=== PATIENT | male | born 1940 | race Caucasian/White ===

== ENCOUNTER 2016-05-06 15:58 | Inpatient (IN) | payer MEDICARE, MEDICAID ==
[~2016-05-06] VITALS: Ht 167.6 cm; Wt 81.6 kg
[2016-05-06 16:45] VITALS: BP 129/62
[2016-05-06] MEDS ORDERED: TRAZ-144 PO (17:28)
[2016-05-06] MEDS ORDERED: RISP0.253 PO (17:28)
[2016-05-06] MEDS ORDERED: ESOM40CA PO (17:28)
[2016-05-06 18:45] VITALS: BP 129/62
[2016-05-06] MEDS ORDERED: MAG HYDROX/AL HYDROX/SIMETH 30 ML UDC PO PRN (19:00)
[2016-05-06] MEDS ORDERED: MAGNESIUM HYDROXIDE 30 ML UDC PO PRN (19:00)
[2016-05-06] MEDS ORDERED: LORAZEPAM 0.5 MG TABLET PO PRN (19:00)
[2016-05-06 20:00] VITALS: BP 129/62
[2016-05-07 02:04] VITALS: BP 129/62
[2016-05-07 07:19] LABS: ALBUMIN 3.4 g/dL (3.4-5.0); BILIRUBIN,TOTAL 0.6 mg/dL (0.2-1.0); CALCIUM, SERUM 8.4 mg/dL (8.5-10.1); CREATININE 0.9 mg/dL (0.6-1.3); TOTAL PROTEIN, SERUM 6.9 g/dL (6.4-8.2)
[2016-05-07 08:00] VITALS: BP 119/68
[2016-05-07] MEDS ORDERED: QUETIAPINE FUMARATE 25 MG TABLET PO PRN (14:30)
[2016-05-07 16:00] VITALS: BP_SYST 100; BP_SYST 138; BP_DIAS 62; BP_DIAS 73
[2016-05-07] MEDS: risperiDONE-M 0.5 MG TAB.RAPDIS PO SCH ×2 (16:08→21:41)
[2016-05-07 20:11] VITALS: BP 114/57
[2016-05-07] MEDS: TEMAZEPAM 7.5 MG CAPSULE PO PRN (21:41)
[2016-05-07] MEDS ORDERED: MIRTAZAPINE 15 MG TABLET PO SCH (22:00)
[2016-05-08] MEDS: PANTOPRAZOLE 40 MG TABLET.DR PO SCH (07:58)
[2016-05-08 08:00] VITALS: BP 115/65
[2016-05-08] MEDS: risperiDONE-M 0.5 MG TAB.RAPDIS PO SCH ×2 (08:12→21:47)
[2016-05-08] MEDS ORDERED: PHENOL/SODIUM PHENOLATE 1 LOZ LOZENGE PO ONE (12:30)
[2016-05-08 16:00] VITALS: BP 131/64
[2016-05-08] MEDS ORDERED: MENTHOL/CETYLPYRD (CEPACOL) 1 LOZ LOZENGE PO ONE (17:00)
[2016-05-08 19:57] VITALS: BP 133/67
[2016-05-08] MEDS: TEMAZEPAM 7.5 MG CAPSULE PO PRN (21:47)
[2016-05-08] MEDS: DIVALPROEX SODIUM 250 MG TABLET.DR PO SCH (21:47)
[2016-05-09] MEDS: ACETAMINOPHEN 325 MG TABLET PO PRN (01:35)
[2016-05-09] MEDS: PANTOPRAZOLE 40 MG TABLET.DR PO SCH (07:30)
[2016-05-09 08:00] VITALS: BP 135/73
[2016-05-09] MEDS: DIVALPROEX SODIUM 250 MG TABLET.DR PO SCH ×2 (09:59→20:55)
[2016-05-09] MEDS: risperiDONE-M 0.5 MG TAB.RAPDIS PO SCH ×2 (09:59→18:26)
[2016-05-09 16:00] VITALS: BP 126/74
[2016-05-09 21:10] VITALS: BP 146/85
[2016-05-10] MEDS: ACETAMINOPHEN 325 MG TABLET PO PRN (04:11)
[2016-05-10 08:00] VITALS: BP 135/70
[2016-05-10] MEDS: risperiDONE-M 0.5 MG TAB.RAPDIS PO SCH ×3 (09:33→16:08)
[2016-05-10] MEDS: PANTOPRAZOLE 40 MG TABLET.DR PO SCH (09:33)
[2016-05-10] MEDS: DIVALPROEX SODIUM 250 MG TABLET.DR PO SCH ×2 (09:34→21:00)
[2016-05-10 16:00] VITALS: BP 106/63
[2016-05-10 19:56] VITALS: BP 122/66
[2016-05-10] MEDS: TEMAZEPAM 7.5 MG CAPSULE PO PRN (22:11)
[2016-05-11 08:00] VITALS: BP 124/66
[2016-05-11] MEDS: ACETAMINOPHEN 325 MG TABLET PO PRN (08:08)
[2016-05-11] MEDS: PANTOPRAZOLE 40 MG TABLET.DR PO SCH (08:09)
[2016-05-11] MEDS: risperiDONE-M 0.5 MG TAB.RAPDIS PO SCH ×3 (08:09→17:09)
[2016-05-11] MEDS: DIVALPROEX SODIUM 125 MG TABLET.DR PO SCH ×2 (09:12→20:49)
[2016-05-11] MEDS: DIVALPROEX SODIUM 250 MG TABLET.DR PO SCH ×2 (09:12→20:49)
[2016-05-11 16:00] VITALS: BP 134/83
[2016-05-11 20:00] VITALS: BP 128/73
[2016-05-11] MEDS: TEMAZEPAM 7.5 MG CAPSULE PO PRN (22:50)
[2016-05-12] MEDS: ACETAMINOPHEN 325 MG TABLET PO PRN (04:28)
[2016-05-12 08:00] VITALS: BP 142/75
[2016-05-12] MEDS: PANTOPRAZOLE 40 MG TABLET.DR PO SCH (08:48)
[2016-05-12] MEDS: DIVALPROEX SODIUM 125 MG TABLET.DR PO SCH ×2 (08:48→20:11)
[2016-05-12] MEDS: DIVALPROEX SODIUM 250 MG TABLET.DR PO SCH ×2 (08:48→20:11)
[2016-05-12] MEDS: risperiDONE-M 0.5 MG TAB.RAPDIS PO SCH ×3 (08:48→17:16)
[2016-05-12 16:03] VITALS: BP 135/77
[2016-05-12 20:00] VITALS: BP 137/72
[2016-05-12] MEDS: TEMAZEPAM 7.5 MG CAPSULE PO PRN (22:32)
[2016-05-13] MEDS: ACETAMINOPHEN 325 MG TABLET PO PRN (04:07)
[2016-05-13 07:25] LABS: BASOPHILS % (AUTO) 0.4 % (0.0-2.0); DIFF TOTAL % 100 %; EOSINOPHILS # (AUTO) 0.2 /CMM (0.0-0.7); EOSINOPHILS % (AUTO) 3.2 % (0.0-6.0); HEMATOCRIT 37 % (39-51); HEMOGLOBIN 11.6 g/dL (13.5-17.5); LYMPHOCYTES # (AUTO) 1.7 /CMM (0.8-4.8); LYMPHOCYTES % (AUTO) 22.3 % (20.0-44.0); MEAN CORPUSCULAR HEMOGLOBIN 21 PG (26.0-33.0); MEAN CORPUSCULAR HGB CONC 32 g/dl (31.0-36.0); MEAN CORPUSCULAR VOLUME 68 fL (80-96); MONOCYTES # (AUTO) 0.6 /CMM (0.1-1.30); MONOCYTES % (AUTO) 8.2 % (2.0-12.0); NEUTROPHILS # (AUTO) 4.9 /CMM (1.8-8.9); NEUTROPHILS % (AUTO) 65.9 % (43.0-81.0); PLATELET COUNT (AUTO) 332 /CMM (150-450); RED BLOOD CELL COUNT(AUTO) 5.46 MIL/uL (4.5-6.0); WHITE BLOOD COUNT (AUTO) 7.4 K/uL (4.3-11.0)
[2016-05-13 07:32] LABS: ALBUMIN 3.3 g/dL (3.4-5.0); BILIRUBIN,TOTAL 0.3 mg/dL (0.2-1.0); CALCIUM, SERUM 8.5 mg/dL (8.5-10.1); CREATININE 0.9 mg/dL (0.6-1.3); POTASSIUM 4.5 mmol/L (3.5-5.1)
[2016-05-13 07:46] LABS: CHOLESTEROL 131 mg/dL (<200); HDL CHOLESTEROL 35 mg/dL (40-60); LDL 86 mg/dL (0-99); TRIGLYCERIDES 59 mg/dL (30-150)
[2016-05-13 08:00] VITALS: BP 127/77
[2016-05-13 08:10] LABS: BAND % (MANUAL) 2 % (0.0-5.0); EOSINOPHILS % (MANUAL) 3 % (0-4); LYMPHOCYTES % (MANUAL) 18 % (16-48); PLATELET ESTIMATE ADEQUATE
[2016-05-13 08:11] LABS: ANISOCYTOSIS 2+; HYPOCHROMASIA 1+; MICROCYTOSIS 2+
[2016-05-13] MEDS: DIVALPROEX SODIUM 125 MG TABLET.DR PO SCH (08:35)
[2016-05-13] MEDS: DIVALPROEX SODIUM 250 MG TABLET.DR PO SCH ×2 (08:35→21:59)
[2016-05-13] MEDS: risperiDONE-M 0.5 MG TAB.RAPDIS PO SCH ×3 (08:35→17:21)
[2016-05-13] MEDS: PANTOPRAZOLE 40 MG TABLET.DR PO SCH (08:35)
[2016-05-13 16:10] VITALS: BP 122/73
[2016-05-13 20:00] VITALS: BP 135/62
[2016-05-13] MEDS: TEMAZEPAM 7.5 MG CAPSULE PO PRN (21:59)
[2016-05-13] MEDS: DONEPEZIL 5 MG TABLET PO SCH (21:59)
[2016-05-14 08:03] VITALS: BP 133/82
[2016-05-14] MEDS: ACETAMINOPHEN 325 MG TABLET PO PRN (08:08)
[2016-05-14] MEDS: PANTOPRAZOLE 40 MG TABLET.DR PO SCH (08:08)
[2016-05-14] MEDS: risperiDONE-M 0.5 MG TAB.RAPDIS PO SCH ×3 (08:08→16:38)
[2016-05-14] MEDS: DIVALPROEX SODIUM 250 MG TABLET.DR PO SCH ×2 (08:08→21:22)
[2016-05-14 15:50] VITALS: BP 125/67
[2016-05-14 19:50] VITALS: BP 153/84
[2016-05-14] MEDS: TEMAZEPAM 7.5 MG CAPSULE PO PRN (21:22)
[2016-05-14] MEDS: DONEPEZIL 5 MG TABLET PO SCH (21:22)
[2016-05-15] MEDS: ACETAMINOPHEN 325 MG TABLET PO PRN (06:47)
[2016-05-15] MEDS: DIVALPROEX SODIUM 250 MG TABLET.DR PO SCH (08:32)
[2016-05-15] MEDS: risperiDONE-M 0.5 MG TAB.RAPDIS PO SCH ×3 (08:32→16:46)
[2016-05-15] MEDS: PANTOPRAZOLE 40 MG TABLET.DR PO SCH (08:59)
[2016-05-15 16:00] VITALS: BP 130/73
[2016-05-15 20:00] VITALS: BP 156/74
== END 2016-05-16 02:28 | DRG 885 ==
LOC: ER 16:00 → GPS 18:00
PROVIDERS: ADMIT Psychiatry & Neurology Psychosomatic Medicine; ATTEND Family Medicine
DX: F25.9 Schizoaffective disorder, unspecified (principal); F02.80 Dementia in other diseases classified elsewhere, unspecified severity, without behavioral disturbance, psychotic disturbance, mood disturbance, and anxiety; E87.1 Hypo-osmolality and hyponatremia; R45.851 Suicidal ideations; K21.9 Gastro-esophageal reflux disease without esophagitis; Z91.19 Patient's noncompliance with other medical treatment and regimen; E83.51 Hypocalcemia; Z59.0 Homelessness; Z91.14 Patient's other noncompliance with medication regimen; F39 Unspecified mood [affective] disorder; F29 Unspecified psychosis not due to a substance or known physiological condition; G30.9 Alzheimer's disease, unspecified; F31.9 Bipolar disorder, unspecified
CPT/HCPCS: 36415; 80053-TC; 80061-TC; 80164-TC; 85025-TC; 87081-TC; A4606; Z7610